=== PATIENT | female | born 1935 | race Asian ===

== ENCOUNTER 2016-11-24 21:02 | Emergency (ER) | payer OTHER ==
[~2016-11-24] VITALS: Ht 152.4 cm; Wt 81.8 kg
[~2016-11-24 21:02] MED LIST: ASPI-825 PO; ATOR40TA71 PO; CALC-590 PO; EZET10 PO; LOSA50TA37 PO; MEMA10TA11 PO; METF850T2 PO; METO50 PO; MONT10TA21 PO; MULT-1192 PO; TRIA1TAB3 PO
[2016-11-24 21:22] LABS: GLUCOSE,POINT OF CARE 171 MG/DL (70-110)
[2016-11-24 21:28] VITALS: BP 155/79
[2016-11-24] MEDS ORDERED: PredniSONE 20 MG TABLET PO ONE (21:30)
[2016-11-24] MEDS ORDERED: DiphenhydrAMINE HCL 50 MG/ML VIAL IM ONE (21:30)
== END 2016-11-24 21:34 | disposition home or self-care (01) ==
LOC: EMS 21:05
DX: L50.9 Urticaria, unspecified (principal); E11.9 Type 2 diabetes mellitus without complications; I10 Essential (primary) hypertension; E03.9 Hypothyroidism, unspecified
CPT/HCPCS: 82962; 96372; 99283; J1200; J7512

== ENCOUNTER 2017-01-04 10:54 | Emergency (ER) | payer OTHER ==
[~2017-01-04] VITALS: Ht 160 cm; Wt 74.1 kg
[2017-01-04 11:07] LABS: GLUCOSE,POINT OF CARE 133 MG/DL (70-110)
[2017-01-04 12:40] LABS: BASOPHILS % (AUTO) 0.3 % (0.0-2.0); EOSINOPHILS % (AUTO) 1.1 % (1.0-6.0); HEMATOCRIT 39.3 % (36-46); HEMOGLOBIN 12.9 g/dL (12.0-16.0); LYMPHOCYTES % (AUTO) 21.6 % (22.0-44.0); MEAN CORPUSCULAR HEMOGLOBIN 29.1 pg (26.0-34.0); MEAN CORPUSCULAR HGB CONC 32.9 G/dL (31.0-37.0); MEAN CORPUSCULAR VOLUME 89 fL (80-100); MONOCYTES # (AUTO) 0.7 K/uL (0.1-1.0); MONOCYTES % (AUTO) 7.5 % (2.0-9.0); NEUTROPHILS # (AUTO) 6.5 K/uL (1.8-7.7); NEUTROPHILS % (AUTO) 69.5 % (40.0-70.0); PLATELET COUNT (AUTO) 247 K/uL (150-450); RED BLOOD CELL COUNT(AUTO) 4.43 MIL/uL (4.00-5.20); RED CELL DISTRIBUTION WIDTH 13.9 % (11.5-14.5); WHITE BLOOD COUNT (AUTO) 9.4 K/uL (4.5-11.0)
[2017-01-04 12:50] LABS: ANION GAP 13 mmol/L (8-16); CALCIUM, TOTAL 9.9 mg/dL (8.8-10.5); CARBON DIOXIDE 24 mmol/L (22-29); CHLORIDE 102 mmol/L (98-107); GLOMERULAR FILTR. RATE CALC 25 mL/min (>60); POTASSIUM 4.5 mmol/L (3.5-5.1); SODIUM SERUM 139 mmol/L (136-145); UREA NITROGEN, BLOOD 32 mg/dL (7-18)
[2017-01-04 12:56] LABS: ALANINE AMINOTRANSFERASE 29 U/L (12-78); ALBUMIN 3.6 g/dL (3.4-5.0); ASPARTATE AMINOTRANSFERASE 20 U/L (15-37); BILIRUBIN,TOTAL 0.3 mg/dL (0.1-1.0); CREATINE KINASE, TOTAL 36 U/L (26-192); INR 0.9 (0.9-1.1); TOTAL PROTEIN, SERUM 7.8 g/dL (6.4-8.2)
[2017-01-04 13:04] LABS: B-TYPE NATRIURETIC PEPTIDE 16 pg/mL (0-100)
[2017-01-04 13:32] VITALS: BP 124/70
[2017-01-04 14:18] LABS: GLUCOSE,POINT OF CARE 114 MG/DL (70-110)
[2017-01-04 14:43] LABS: ADD UA MICROSCOPIC NO; APPEARANCE,URINE CLEAR (CLEAR); GLUCOSE, URINE (UA) NEGATIVE (NEGATIVE); KETONES,URINE NEGATIVE (NEGATIVE); LEUKOCYTE ESTERASE ,URINE NEGATIVE (NEGATIVE); OCCULT BLOOD,URINE NEGATIVE (NEGATIVE); PH,URINE 5.5 (5.0-8.0); PROTEIN,URINE NEGATIVE (NEGATIVE)
== END 2017-01-04 15:41 | disposition home or self-care (01) ==
LOC: EMS 10:58
DX: R63.0 Anorexia (principal); R53.1 Weakness; I12.9 Hypertensive chronic kidney disease with stage 1 through stage 4 chronic kidney disease, or unspecified chronic kidney disease; E11.22 Type 2 diabetes mellitus with diabetic chronic kidney disease; N18.9 Chronic kidney disease, unspecified; E03.9 Hypothyroidism, unspecified; E66.9 Obesity, unspecified; Z68.28 Body mass index [BMI] 28.0-28.9, adult; Z79.82 Long term (current) use of aspirin
CPT/HCPCS: 82962; 93005; 99285

== ENCOUNTER 2017-03-22 19:28 | Emergency (ER) | payer OTHER ==
[~2017-03-22] VITALS: Ht 157.5 cm; Wt 73.6 kg
[~2017-03-22 19:28] MED LIST changes: -CALC-590 PO
[2017-03-22 19:49] LABS: GLUCOSE,POINT OF CARE 110 MG/DL (70-110)
[2017-03-23 01:10] VITALS: BP 111/60
== END 2017-03-23 01:27 | disposition home or self-care (01) ==
LOC: EMS 19:29
DX: S00.83XA Contusion of other part of head, initial encounter (principal); E03.9 Hypothyroidism, unspecified; E11.9 Type 2 diabetes mellitus without complications; E66.9 Obesity, unspecified; I10 Essential (primary) hypertension; M81.0 Age-related osteoporosis without current pathological fracture; W01.0XXA Fall on same level from slipping, tripping and stumbling without subsequent striking against object, initial encounter; Z79.82 Long term (current) use of aspirin
CPT/HCPCS: 70486; 82962; 99284

== ENCOUNTER 2017-04-09 09:56 | Emergency (ER) | payer OTHER ==
[~2017-04-09] VITALS: Ht 160 cm; Wt 90.9 kg
[2017-04-09 10:58] LABS: BASOPHILS # (AUTO) 0.17 K/uL (0.00-0.20); EOSINOPHILS # (AUTO) 0.11 K/uL (0.00-0.70); EOSINOPHILS % (AUTO) 0.67 % (1.0-6.0); HEMATOCRIT 35.8 % (36-46); HEMOGLOBIN 11.7 g/dL (12.0-16.0); LYMPHOCYTES # (AUTO) 2.5 K/uL (1.0-4.8); LYMPHOCYTES % (AUTO) 14.7 % (22.0-44.0); MEAN CORPUSCULAR HGB CONC 32.6 G/dL (31.0-37.0); MEAN CORPUSCULAR VOLUME 92 fL (80-100); MONOCYTES # (AUTO) 0.9 K/uL (0.1-1.0); MONOCYTES % (AUTO) 5.3 % (2.0-9.0); NEUTROPHILS # (AUTO) 13.4 K/uL (1.8-7.7); NEUTROPHILS % (AUTO) 78.4 % (40.0-70.0); PLATELET COUNT (AUTO) 203 K/uL (150-450); RED BLOOD CELL COUNT(AUTO) 3.88 MIL/uL (4.00-5.20); RED CELL DISTRIBUTION WIDTH 13.2 % (11.5-14.5); WHITE BLOOD COUNT (AUTO) 17.1 K/uL (4.5-11.0)
[2017-04-09 11:08] LABS: ANION GAP 7 mmol/L (8-16); CARBON DIOXIDE 26 mmol/L (22-29); CHLORIDE 101 mmol/L (98-107); CREATININE 1.62 mg/dL (0.60-1.30); GLOMERULAR FILTR. RATE CALC 30 mL/min (>60); POTASSIUM 4.2 mmol/L (3.5-5.1); SODIUM SERUM 134 mmol/L (136-145); UREA NITROGEN, BLOOD 29 mg/dL (7-18)
[2017-04-09 11:09] LABS: PROTHROMBIN TIME 10.1 SEC (9.4-11.6)
[2017-04-09 11:15] LABS: ALANINE AMINOTRANSFERASE 17 U/L (12-78); ALBUMIN 3.4 g/dL (3.4-5.0); ASPARTATE AMINOTRANSFERASE 16 U/L (15-37); BILIRUBIN,TOTAL 0.6 mg/dL (0.1-1.0); CREATINE KINASE, TOTAL 46 U/L (26-192); TOTAL PROTEIN, SERUM 7.3 g/dL (6.4-8.2)
[2017-04-09 11:29] LABS: B-TYPE NATRIURETIC PEPTIDE 41 pg/mL (0-100)
[2017-04-09] MEDS ORDERED: OxyCODONE HCL/ACETAMINOPHEN 5-325 MG TABLET PO ONE (12:00)
[2017-04-09] MEDS ORDERED: ONDANSETRON HCL 4 MG TABLET PO ONE (12:00)
[2017-04-09] MEDS ORDERED: ONDANSETRON HCL 4 MG/2 ML VIAL IVP ONE (12:30)
[2017-04-09] MEDS ORDERED: SODIUM CHLORIDE 0.9% 250 ML IV ONE (13:30)
[2017-04-09 13:56] LABS: GLUCOSE, URINE (UA) NEGATIVE (NEGATIVE); KETONES,URINE NEGATIVE (NEGATIVE); LEUKOCYTE ESTERASE ,URINE NEGATIVE (NEGATIVE); OCCULT BLOOD,URINE NEGATIVE (NEGATIVE); PH,URINE 5.5 (5.0-8.0); PROTEIN,URINE NEGATIVE (NEGATIVE)
[2017-04-09 14:03] LABS: ADD UA MICROSCOPIC YES
[2017-04-09 14:04] LABS: APPEARANCE,URINE HAZY (CLEAR)
[2017-04-09 14:05] LABS: RBC,URINE None Seen /HPF (0-2); WBC,URINE 0-2 /HPF (0-5)
[2017-04-09 14:07] LABS: SQUAMOUS EPITHELIAL CELL,UR Rare /LPF (None Seen)
[2017-04-09 14:10] VITALS: BP 161/99
== END 2017-04-09 14:34 | disposition home or self-care (01) ==
LOC: EMS 09:57
DX: M25.551 Pain in right hip (principal); E03.9 Hypothyroidism, unspecified; E11.9 Type 2 diabetes mellitus without complications; E66.9 Obesity, unspecified; I10 Essential (primary) hypertension; Z68.35 Body mass index [BMI] 35.0-35.9, adult
CPT/HCPCS: 36415; 71010; 73502; 80053; 81001; 82550; 82962; 83880; 84484; 85025; 85610; 85730; 87077; 87086; 93005; 96374; 99285; J2405; J7050; Q0162

== ENCOUNTER 2017-04-12 09:20 | Emergency (ER) | payer OTHER ==
[~2017-04-12] VITALS: Ht 160 cm; Wt 73.6 kg
[2017-04-12 09:38] LABS: GLUCOSE,POINT OF CARE 148 MG/DL (70-110)
[2017-04-12] MEDS ORDERED: CIPR-279 PO (09:40)
[2017-04-12] MEDS ORDERED: ACET325C PO (09:40)
[2017-04-12] MEDS ORDERED: SODIUM CHLORIDE 0.9% 1,000 ML IV ONE (09:45)
[2017-04-12 11:07] LABS: BASOPHILS % (AUTO) 0.3 % (0.0-2.0); EOSINOPHILS % (AUTO) 0.1 % (1.0-6.0); HEMATOCRIT 29.7 % (36-46); HEMOGLOBIN 10.1 g/dL (12.0-16.0); LYMPHOCYTES # (AUTO) 1.6 K/uL (1.0-4.8); LYMPHOCYTES % (AUTO) 10.6 % (22.0-44.0); MEAN CORPUSCULAR HEMOGLOBIN 30.3 pg (26.0-34.0); MEAN CORPUSCULAR HGB CONC 33.9 G/dL (31.0-37.0); MEAN CORPUSCULAR VOLUME 89 fL (80-100); MONOCYTES % (AUTO) 6.7 % (2.0-9.0); NEUTROPHILS # (AUTO) 12.5 K/uL (1.8-7.7); NEUTROPHILS % (AUTO) 82.3 % (40.0-70.0); PLATELET COUNT (AUTO) 277 K/uL (150-450); RED BLOOD CELL COUNT(AUTO) 3.31 MIL/uL (4.00-5.20); RED CELL DISTRIBUTION WIDTH 13.1 % (11.5-14.5); WHITE BLOOD COUNT (AUTO) 15.2 K/uL (4.5-11.0)
[2017-04-12 11:14] LABS: CALCIUM, TOTAL 9.1 mg/dL (8.8-10.5); CREATININE 1.9 mg/dL (0.60-1.30); POTASSIUM 4.8 mmol/L (3.5-5.1)
[2017-04-12 11:20] LABS: ALBUMIN 3.2 g/dL (3.4-5.0); BILIRUBIN,TOTAL 0.9 mg/dL (0.1-1.0); TOTAL PROTEIN, SERUM 7.6 g/dL (6.4-8.2)
[2017-04-12] MEDS ORDERED: MORPHINE SULFATE 2 MG/ML SYRINGE IVP ONE (12:15)
[2017-04-12] MEDS ORDERED: CeFAZolin 1 GM/DEXTROSE 50 ML IV ONE (14:30)
[2017-04-12 16:55] VITALS: BP 140/80
[2017-04-12 17:03] LABS: GLUCOSE,POINT OF CARE 148 MG/DL (70-110)
== END 2017-04-12 17:12 | disposition short-term general hospital (02) ==
LOC: EMS 09:20
DX: S72.401A Unspecified fracture of lower end of right femur, initial encounter for closed fracture (principal); E87.1 Hypo-osmolality and hyponatremia; E86.0 Dehydration; N39.0 Urinary tract infection, site not specified; N28.9 Disorder of kidney and ureter, unspecified; R62.7 Adult failure to thrive; I10 Essential (primary) hypertension; E03.9 Hypothyroidism, unspecified; E11.9 Type 2 diabetes mellitus without complications; W18.39XA Other fall on same level, initial encounter; Y93.89 Activity, other specified; Y92.89 Other specified places as the place of occurrence of the external cause; Y99.8 Other external cause status
CPT/HCPCS: 36415; 51702; 71010; 73562; 80053; 82962; 85025; 93005; 93971; 96365; 96375; 99285; J0690; J2270; J7030